=== PATIENT | female | born 1985 | race African-American/Black ===

== ENCOUNTER 2020-09-10 23:18 | Inpatient (IN) | payer BC, MEDICAID ==
[2020-09-10 23:58] LABS: APPEARANCE,URINE CLEAR; BILIRUBIN,URINE NEGATIVE (NEGATIVE); COLOR,URINE YELLOW; GLUCOSE, URINE NEGATIVE (NEGATIVE); KETONES,URINE NEGATIVE (NEGATIVE); LEUKOCYTE ESTERASE,URINE TRACE (NEGATIVE); NITRITE,URINE NEGATIVE (NEGATIVE); PROTEIN,URINE 30 mg/dL (NEGATIVE); URINE SPECIFIC GRAVITY 1.011
[2020-09-11] MEDS ORDERED: PENICILLIN G POTASSIUM 5,000,000 UNIT in DEXTROSE 5%-WATER 100 ML IV ONE (00:03)
[2020-09-11] MEDS ORDERED: PENICILLIN G-K 5 MILLION UNIT VIAL ONE (00:04)
[2020-09-11] MEDS ORDERED: BETAMET ACET/BETAMET NA INJ 6 MG/1 ML ONE ×3 (00:04→00:42)
[2020-09-11] MEDS ORDERED: AZITHROMYCIN INJ 500 MG VIAL IV ONE ×2 (00:04→00:05)
[2020-09-11] MEDS ORDERED: BETAMET ACET/BETAMET NA INJ 6 MG/1 ML IM PRN (00:05)
[2020-09-11 00:22] LABS: URINE AMPHETAMINES SCREEN NEGATIVE; URINE BARBITURATES SCREEN NEGATIVE; URINE BENZODIAZEPINES SCREEN NEGATIVE; URINE COCAINE SCREEN NEGATIVE; URINE MARIJUANA (THC) SCREEN NEGATIVE; URINE METHADONE SCREEN NEGATIVE; URINE PHENCYCLIDINE SCREEN NEGATIVE
--- NOTE | 2020-09-11 00:32 | PDOC TRANSFER SUMMARY ---
General Admission Date/PCP: 09/11/20 00:03 The patient is a A2 with cerclage and history of lupus presenting from home with ruptured membranes tonight at 30 weeks. Admission Date: 09/10/20 Transfer Date: 09/11/20 [facility] Accepting Physician: [place] Resuscitation Status: Full Code - Transfer Medications Home Medications: Hydroxychloroquine Sulfate [Plaquenil 200 mg Tablet] 200 mg PO DAILY 04/16/15 Prednisone 5 mg PO DAILY 04/16/15 No.137/Iron/Folic Acd [ Tablet] 1 tab PO DAILY 04/16/15 Azathioprine 1 tab PO DAILY 04/24/15 Transfer Medications: Current Medications Betamethasone Acet/Betameth SodPhos (Betamet Acet/Betamet Na Inj 6 Mg/1 Ml) 12 mg IM ONCE PRN PRN Reason: THIS MED IS NOT "PRN" Stop: 10/11/20 00:04 Last Admin: 09/11/20 00:16 Dose: 12 mg Documented by: Penicillin G Potassium 5,000, (000 unit/ Dextrose) 100 mls @ 200 mls/hr IV NOW ONE Stop: 09/11/20 00:32 Azithromycin 500 mg/ Dextrose 250 mls @ 250 mls/hr IV NOW ONE Stop: 09/11/20 01:59 - Allergies Allergies/Adverse Reactions: No Known Allergies Allergy (Verified 09/11/20 00:11) Hospital Course Hospital Course: She was seen on labor and delivery and steroids and antibiotics were started. An ultrasound was done and the baby is in a vertex presentation. Plans are to discuss with [facility] and likely transfer the patient as she is under 30 weeks. Physical Exam General appearance: PRESENT: no acute distress, well-developed, well-nourished Head exam: PRESENT: atraumatic, normocephalic Respiratory exam: PRESENT: clear to auscultation felisha. ABSENT: rales, rhonchi, wheezes Cardiovascular exam: PRESENT: RRR. ABSENT: diastolic murmur, rubs, systolic murmur Pulses: PRESENT: normal dorsalis pedis pul GI/Abdominal exam: PRESENT: other - gravid Gentrourinary exam: PRESENT: other - ruptured membranes Neurological exam: PRESENT: alert, awake, oriented to person, oriented to place, oriented to time, oriented to situation, CN II-XII grossly intact. ABSENT: motor sensory deficit Psychiatric exam: PRESENT: appropriate affect, normal mood. ABSENT: homicidal ideation, suicidal ideation Results Laboratory Results: 09/10/20 23:31 Urine Color YELLOW Urine Appearance CLEAR Urine pH 7.0 Ur Specific [place] 1.011 Urine Protein 30 H Urine Glucose (UA) NEGATIVE Urine Ketones NEGATIVE Urine Blood NEGATIVE Urine Nitrite NEGATIVE Ur Leukocyte Esterase TRACE H Urine WBC (Auto) 2 Urine RBC (Auto) 0 Impressions: ruptured membranes at 30 weeks. Plan Discharge Plan: Plan to transfer for NICU care. Time Spent: Greater than 30 Minutes
[2020-09-11] MEDS ORDERED: MAGNESIUM SULFATE 4 GM/100 ML RTUPB IV ONE ×2 (00:56→00:58)
[2020-09-11] MEDS ORDERED: MAGNESIUM SULFATE 20 GM/500 ML RTUINJ IV ONE (00:56)
[2020-09-11 00:57] LABS: ABSOLUTE EOSINOPHILS # (AUTO) 0.2 10^3/uL (0.0-0.6); ABSOLUTE LYMPHOCYTES (AUTO) 1.2 10^3/uL (0.5-4.7); ABSOLUTE MONOCYTES (AUTO) 0.6 10^3/uL (0.1-1.4); BASOPHILS % (AUTO) 0.2 % (0-2); EOSINOPHILS % (AUTO) 2.8 % (0-6); HEMATOCRIT 33.1 % (36.0-47.0); HEMOGLOBIN 11.7 g/dL (12.0-15.5); LYMPHOCYTES % (AUTO) 17.7 % (13-45); MEAN CORPUSCULAR HEMOGLOBIN 34.4 pg (27.0-33.4); MEAN CORPUSCULAR HGB CONC 35.4 g/dL (32.0-36.0); MEAN CORPUSCULAR VOLUME 97 fl (80-97); MONOCYTES % (AUTO) 8.8 % (3-13); PLATELET COUNT 156 10^3/uL (150-450); RED BLOOD COUNT 3.41 10^6/uL (3.72-5.28); RED CELL DISTRIBUTION WIDTH 13.1 % (11.5-14.0); SEGMENTED NEUTROPHILS % (AUTO) 70.5 % (42-78); TOTAL CELLS COUNTED % (AUTO) 100 %
[2020-09-11] MEDS ORDERED: MAGNESIUM SULFATE 20 GM/500 ML RTUINJ IV PRN (00:58)
[2020-09-11] MEDS ORDERED: AZITHROMYCIN 500 MG in DEXTROSE 5%-WATER 250 ML IV ONE (01:00)
--- NOTE | 2020-09-11 01:07 | RADIOLOGY REPORT (SQ) ---
EXAM DESCRIPTION: U/S OB LIMITED RadLex: US LIMITED CLINICAL HISTORY: 35 years Female; ROM; TECHNIQUE: Transabdominal obstetrical ultrasound was performed. COMPARISON: None. FINDINGS: Number of fetuses: Single position: Vertex BPD: 29 weeks 4 days, 13% HC: 29 weeks 0 days, 1% AC: 29 weeks 4 days, and 19% FL: 31 weeks 1 day, 50% EFW: 1498 g (3 lbs. 5 oz.), 39% HR: 147 BPM Anatomy: Grossly unremarkable on this limited exam. Amniotic fluid: KIMMY 12.2 cm. Clear Cervix: Not visualized Placenta: Anterior IMPRESSION: 1. Single viable IUP. 2. KIMMY 12.2 cm, normal. However, amniotic fluid volume is subjectively decreased. 3. EGA 29 weeks 6 days, EDC 11/21/2020
== END 2020-09-11 03:43 | disposition short-term general hospital (02) | DRG 832 ==
LOC: LC 23:18 → LR 09-11 00:03
PROVIDERS: ADMIT Obstetrics & Gynecology; ATTEND Obstetrics & Gynecology
DX: O60.03 Preterm labor without delivery, third trimester (principal); O99.113 Other diseases of the blood and blood-forming organs and certain disorders involving the immune mechanism complicating pregnancy, third trimester; D68.62 Lupus anticoagulant syndrome; Z20.828 Contact with and (suspected) exposure to other viral communicable diseases; Z3A.30 30 weeks gestation of pregnancy
CPT/HCPCS: 36415; 76815; 80307; 81001; 84112; 85025; 86592; 86850; 86900; 86901; 87077; 87081; 94760; 96372; J0456; J0702; J2540; J3475; J7060